=== PATIENT | male | born 2000 | race African-American/Black ===

== ENCOUNTER 2022-03-10 20:20 | Emergency (ER) | payer OTHER ==
[~2022-03-10] VITALS: Ht 172.7 cm; Wt 100.0 kg
[2022-03-10 20:21] VITALS: BP 168/102
[2022-03-10] MEDS ORDERED: IBUP80TA PO (23:15)
== END 2022-03-10 23:34 | disposition home or self-care (01) ==
LOC: M ED 20:20
DX: S89.92XA Unspecified injury of left lower leg, initial encounter (principal); W19.XXXA Unspecified fall, initial encounter; Y99.1 Military activity